=== PATIENT | female | born 1990 | race Caucasian/White ===

== ENCOUNTER 2016-10-23 16:49 | Emergency (ER) | payer OTHER ==
--- NOTE | 2016-10-23 17:59 | ED NURSING NOTES ---
Clinical Report - Nurses [facility] [address] [place] [address] 10/23/2016 16:50 Patient: MERLIN SKINNER TRIAGE Triage time 16:55. Acuity: LEVEL 4. Chief Complaint: (blurry vision). 17:06 10/23/16. Alert. No acute distress. SEPSIS SCREEN: Sepsis Screen. Negative (no infection suspected/documented). LUIS COMA SCORE: [place] Coma Scale: 15- eyes open spontaneously (4); best verbal response- oriented x 4 (5); best motor response- obeys commands (6). --17:06 Rhonda Arroyo R.N. 16:57 10/23/16. BP: 116/74. HR: 84. RR: 15. O2 saturation: 97%. Temp: 98.3 F. Pain level now: 10/12. --17:06 Rhonda Arroyo R.N. Weight: 54.4 kg stated. Height/Length: 64 inches Per Patient. BMI: 20.6. --17:01 Rhonda Arroyo R.N. Medications Suboxone Sublingual. --16:59 Rhonda Arroyo R.N. Allergies No Known Drug Allergy. --16:59 Rhonda Arroyo R.N. History Arrived by private vehicle. Historian: patient. Primary physician (Dr Niño). This started today. She has had a headache and weakness. No vomiting. Treatment CERTIFIED ALCOHOL DRUG COUNSELOR: None. PAST MEDICAL HX: Immunizations: up-to-date. Last normal menstrual period- 1 month ago. Denies current . ( pt states "my period is super irregular"). SOCIAL HX: Never smoker. History of drug use. Is a recovering addict. No alcohol use. FALL RISK ASSESSMENT: Fall risk assessment completed. No fall risk identified. NUTRITIONAL RISK ASSESSMENT: The nutritional risk assessment revealed no deficiencies. FUNCTIONAL ASSESSMENT: Functional assessment: no impairments noted. LEARNING NEEDS ASSESSMENT: The learning needs assessment revealed no barriers. SKIN INTEGRITY ASSESSMENT: Skin integrity risk assessment completed. No skin integrity risk identified. --17:06 Rhonda Arroyo R.N. PROBLEMS: Palpitations. Sinus Tachycardia. LNMP - Last Normal Menstrual Period. --17:00 Rhonda Arroyo R.N. Interventions ID band on patient. To treatment room. --17:06 Rhonda Arroyo R.N. PHYSICAL ASSESSMENT 17:07 10/23/16. Ambulatory to room. GENERAL / NEURO / PSYCH: Oriented X 4. Appears in no acute distress. Alert. Speech within normal limits. HEENT: No facial asymmetry noted. RESPIRATORY: Respirations not labored. CVS: Capillary refill less than 2 seconds. SKIN: Skin is warm and dry. --17:07 Rhonda Arroyo R.N. NURSING PROGRESS NOTES 17:07 10/23/16. Patient gowned. Two patient identifiers checked. Call light placed in reach. Side rails up x 2. Bed placed in lowest position. Brakes of bed on. Patient ready for evaluation- chart flagged and notification provided. --17:07 Rhonda Arroyo R.N. 17:18 10/23/16. VISUAL ACUITY: Visual acuity performed without corrective lenses: left eye 20/25; right eye 20/40; both eyes 20/30. --17:18 Rhonda Arroyo R.N. EKG time: (1744). EKG was ordered, performed by a tech and shown to the ED physician. --17:25 Moraima Birmingham ER Tech1 17:34 10/23/16. Urine test negative; lot #: [id number]. manager control check passed. --17:34 Rhonda Arroyo R.N. 17:46 10/23/2016 Vistaril (HydrOXYzine Pamoate) PO Capsules 100 mg given. Allergies verified, confirmed 5 rights and sedative warning given to the patient. --17:46 Rhonda Arroyo R.N. 17:50 10/23/16. Patient and family informed about reason for wait and about plan of care. ( Patient drinking water in room.). --17:50 Rhonda Arroyo R.N. DISPOSITION / DISCHARGE 18:25 10/23/16. No learning barriers present. Discharge instructions provided and reviewed with the patient and parent. Reviewed warnings. Reviewed medication(s). Treatments reviewed. Reviewed referrals. Patient and parent verbalized understanding. Written instructions provided in Sammarinese. The patient was discharged by the physician apartment community assistant manager. She was discharged home and accompanied by parent. She left the Emergency Department ambulatory and via private vehicle. Parent driving. --18:25 Rhonda Arroyo R.N. 18:24 10/23/16. BP: 116/76. HR: 72. RR: 12. O2 saturation: 100%. Temp: deferred. Pain level now: 0/10. --18:25 Rhonda Arroyo R.N. Locked/Released at 10/23/2016 18:38 by Rhonda Arroyo R.N.
--- NOTE | 2016-10-23 17:59 | ED ORDER SUMMARY ---
..... Patient: MERLIN SKINNER OrderSheet [facility] VisitID: [id number] [place] [address] 25y, F Registration Date/Time: 10/23/2016 ORDER SHEET Weight: 54.4 kg (stated) Allergies: No Known Drug Allergy GENERAL ORDERS: Visual Acuity (17:01 10/23/2016 EKoroleva P.A.-C) (Ack 17:08 RMarsden R.N.) (17:15 RMarsden R.N.) POC - Urine hCG (17:03 10/23/2016 EKoroleva P.A.-C) (Ack 17:08 RMarsden R.N.) (17:34 RMarsden R.N.) Dressage Instructor (Continuous) (17:03 10/23/2016 EKoroleva P.A.-C) (Ack 17:08 RMarsden R.N.) (17:34 RMarsden R.N.) EKG - ER Stat (17:03 10/23/2016 EKoroleva P.A.-C) (Ack 17:06 KHoerner) (17:08 KHoerner) Vitals (17:30 10/23/2016 EKoroleva P.A.-C) (Cancelled: Other17:30 EKoroleva P.A.-C) MEDICATION ORDERS: Vistaril PO 100 mg (NOW) (17:37 10/23/2016 EKoroleva P.A.-C) (Ack 17:41 RMarsden R.N.) (17:46 RMarsden R.N.) IV FLUIDS: ORDER SHEET NOTES: [Electronically signed by Tania FinleyAVirgilio-C (18:32 10/23/2016)] [Electronically signed by Rhonda Arroyo R.N. (18:38 10/23/2016)] [Electronically locked/signed by Rhonda Arroyo R.N. (18:38 10/23/2016)]
--- NOTE | 2016-10-23 17:59 | ED CLINICAL REPORT ---
Clinical Report - Physicians/Mid Levels [facility] [address] [place] [address] 10/23/2016 16:50 [id number] Time Seen: 17:04 Oct 23 2016. Arrived- By private vehicle. HISTORY OF PRESENT ILLNESS Chief Complaint: blurred vision/ change in vision/ dark vision. This started just prior to arrival and is still present. No loss of appetite. (Patient reports she was outside playing with a document of her vision started to become blurry and down, not some palpitations, this has resolved. Her vision is also resolved, has had history of similar symptoms, worsening over the last 6 months. Denies any head injury. Denies headache. Reports her symptoms are improving. Last menstrual period about 4 weeks previously. SHe denies any history of DVT or PE. Denies syncope today. Denies neck pain. Sx now improving.). REVIEW OF SYSTEMS No fever, cough, chills or headache. All systems otherwise negative, except as recorded above. PAST HISTORY Problems: Palpitations. Sinus Tachycardia. LNMP - Last Normal Menstrual Period. Medications: Suboxone Sublingual. Allergies: No Known Drug Allergy. ADDITIONAL NOTES The nursing notes have been reviewed. PHYSICAL EXAM Vital Signs: 10/23/2016 16:57 BP: 116/74. HR: 84. RR: 15. O2 saturation: 97%. Temp: 98.3 F. Pain level now: 3/10. Appearance: Alert. ENT: Ears normal. Nose normal. Neck: Normal inspection. CVS: Normal heart rate and rhythm. Heart sounds normal. Respiratory: No respiratory distress. Breath sounds normal. No accessory muscle use. Abdomen: No visible injury. Soft. Bowel sounds normal. No abdominal tenderness. Neuro: Oriented X 3. LABS, X-RAYS, AND EKG EKG: EKG time: (5540). No acute process. No acute ischemia. Normal EKG. Rate: 78. Normal P waves. Normal VALERIY. Normal QRS complex. Normal axis. Normal ST and T waves and QT. The study has been interpreted contemporaneously. The study has been independently viewed by me. The EKG appears to be a good tracing. PROGRESS AND PROCEDURES Course of Care: VISUAL ACUITY: Visual acuity performed without corrective lenses: left eye 20/25; right eye 20/40; both eyes 20/30 POC preg neg Patient with resolution of symptoms in the ER, expressing panic attack and anxiety, urge to help with her primary care provider, for a plan of such. No shortness of breath chest pain in the ER. Symptoms have resolved. 10/23/2016 18:24 BP: 116/76. HR: 72. RR: 12. O2 saturation: 100%. Pain level now: 0/10. Patient is stable. Symptoms better. CLINICAL IMPRESSION Anxiety reaction. INSTRUCTIONS Avoid alcohol and NSAIDS. Examples of NSAIDS include aspirin, ibuprofen (Advil) and naproxen (Aleve). Warnings: Further evaluation is necessary. Prescription Medications: Vistaril 100 mg: take 1 orally every 8 hours for 3 days as needed for anxiety. Dispense ten (10). No refill. Substitution is permissible. Follow-up: Follow up with your doctor in two days. (Electronically signed by Tania Finley P.A.-C 10/23/2016 18:32)
--- NOTE | 2016-10-23 17:59 | ED NURSING NOTES ---
Clinical Report - Nurses [facility] [address] [place] [place] [address] 10/23/2016 16:50 Patient: MERLIN SKINNER TRIAGE Triage time 16:55. Acuity: LEVEL 4. Chief Complaint: (blurry vision). 17:06 10/23/16. Alert. No acute distress. SEPSIS SCREEN: Sepsis Screen. Negative (no infection suspected/documented). LUIS COMA SCORE: [place] Coma Scale: 15- eyes open spontaneously (4); best verbal response- oriented x 4 (5); best motor response- obeys commands (6). --17:06 Rhonda Arroyo R.N. 16:57 10/23/16. BP: 116/74. HR: 84. RR: 15. O2 saturation: 97%. Temp: 98.3 F. Pain level now: 10/12. --17:06 Rhonda Arroyo R.N. Weight: 54.4 kg stated. Height/Length: 64 inches Per Patient. BMI: 20.6. --17:01 Rhonda Arroyo R.N. Medications Suboxone Sublingual. --16:59 Rhonda Arroyo R.N. Allergies No Known Drug Allergy. --16:59 Rhonda Arroyo R.N. History Arrived by private vehicle. Historian: patient. Primary physician (Dr Niño). This started today. She has had a headache and weakness. No vomiting. Treatment WORKFORCE PLANNER: None. PAST MEDICAL HX: Immunizations: up-to-date. Last normal menstrual period- 1 month ago. Denies current . ( pt states "my period is super irregular"). SOCIAL HX: Never smoker. History of drug use. Is a recovering addict. No alcohol use. FALL RISK ASSESSMENT: Fall risk assessment completed. No fall risk identified. NUTRITIONAL RISK ASSESSMENT: The nutritional risk assessment revealed no deficiencies. FUNCTIONAL ASSESSMENT: Functional assessment: no impairments noted. LEARNING NEEDS ASSESSMENT: The learning needs assessment revealed no barriers. SKIN INTEGRITY ASSESSMENT: Skin integrity risk assessment completed. No skin integrity risk identified. --17:06 Rhonda Arroyo R.N. PROBLEMS: Palpitations. Sinus Tachycardia. LNMP - Last Normal Menstrual Period. --17:00 Rhonda Arroyo R.N. Interventions ID band on patient. To treatment room. --17:06 Rhonda Arroyo R.N. PHYSICAL ASSESSMENT 17:07 10/23/16. Ambulatory to room. GENERAL / NEURO / PSYCH: Oriented X 4. Appears in no acute distress. Alert. Speech within normal limits. HEENT: No facial asymmetry noted. RESPIRATORY: Respirations not labored. CVS: Capillary refill less than 2 seconds. SKIN: Skin is warm and dry. --17:07 Rhonda Arroyo R.N. NURSING PROGRESS NOTES 17:07 10/23/16. Patient gowned. Two patient identifiers checked. Call light placed in reach. Side rails up x 2. Bed placed in lowest position. Brakes of bed on. Patient ready for evaluation- chart flagged and notification provided. --17:07 Rhonda Arroyo R.N. 17:18 10/23/16. VISUAL ACUITY: Visual acuity performed without corrective lenses: left eye 20/25; right eye 20/40; both eyes 20/30. --17:18 Rhonda Arroyo R.N. EKG time: (1744). EKG was ordered, performed by a tech and shown to the ED physician. --17:25 Moraima Birmingham ER Tech1 17:34 10/23/16. Urine test negative; lot #: [id number]. quality control specialist check passed. --17:34 Rhonda Arroyo R.N. 17:46 10/23/2016 Vistaril (HydrOXYzine Pamoate) PO Capsules 100 mg given. Allergies verified, confirmed 5 rights and sedative warning given to the patient. --17:46 Rhonda Arroyo R.N. 17:50 10/23/16. Patient and family informed about reason for wait and about plan of care. ( Patient drinking water in room.). --17:50 Rhonda Arroyo R.N. DISPOSITION / DISCHARGE 18:25 10/23/16. No learning barriers present. Discharge instructions provided and reviewed with the patient and parent. Reviewed warnings. Reviewed medication(s). Treatments reviewed. Reviewed referrals. Patient and parent verbalized understanding. Written instructions provided in Pakistani. The patient was discharged by the physician sales assistants and salespersons. She was discharged home and accompanied by parent. She left the Emergency Department ambulatory and via private vehicle. Parent driving. --18:25 Rhonda Arroyo R.N. 18:24 10/23/16. BP: 116/76. HR: 72. RR: 12. O2 saturation: 100%. Temp: deferred. Pain level now: 0/10. --18:25 Rhonda Arroyo R.N. Locked/Released at 10/23/2016 18:38 by Rhonda Arroyo R.N.
--- NOTE | 2016-10-23 17:59 | ED ORDER SUMMARY ---
..... Patient: MERLIN SKINNER OrderSheet [facility] VisitID: [id number] [place] [address] 25y, F Registration Date/Time: 10/23/2016 ORDER SHEET Weight: 54.4 kg (stated) Allergies: No Known Drug Allergy GENERAL ORDERS: Visual Acuity (17:01 10/23/2016 EKoroleva P.A.-C) (Ack 17:08 RMarsden R.N.) (17:15 RMarsden R.N.) POC - Urine hCG (17:03 10/23/2016 EKoroleva P.A.-C) (Ack 17:08 RMarsden R.N.) (17:34 RMarsden R.N.) Shake Packer (Continuous) (17:03 10/23/2016 EKoroleva P.A.-C) (Ack 17:08 RMarsden R.N.) (17:34 RMarsden R.N.) EKG - ER Stat (17:03 10/23/2016 EKoroleva P.A.-C) (Ack 17:06 KHoerner) (17:08 KHoerner) Vitals (17:30 10/23/2016 EKoroleva P.A.-C) (Cancelled: Other17:30 EKoroleva P.A.-C) MEDICATION ORDERS: Vistaril PO 100 mg (NOW) (17:37 10/23/2016 EKoroleva P.A.-C) (Ack 17:41 RMarsden R.N.) (17:46 RMarsden R.N.) IV FLUIDS: ORDER SHEET NOTES: [Electronically signed by Tania FinleyAVirgilio-C (18:32 10/23/2016)] [Electronically signed by Rhonda Arroyo R.N. (18:38 10/23/2016)] [Electronically locked/signed by Rhonda Arroyo R.N. (18:38 10/23/2016)]
--- NOTE | 2016-10-23 17:59 | ED CLINICAL REPORT ---
Clinical Report - Physicians/Mid Levels [facility] [address] [place] [address] 10/23/2016 16:50 [id number] Time Seen: 17:04 Oct 23 2016. Arrived- By private vehicle. HISTORY OF PRESENT ILLNESS Chief Complaint: blurred vision/ change in vision/ dark vision. This started just prior to arrival and is still present. No loss of appetite. (Patient reports she was outside playing with a document of her vision started to become blurry and down, not some palpitations, this has resolved. Her vision is also resolved, has had history of similar symptoms, worsening over the last 6 months. Denies any head injury. Denies headache. Reports her symptoms are improving. Last menstrual period about 4 weeks previously. SHe denies any history of DVT or PE. Denies syncope today. Denies neck pain. Sx now improving.). REVIEW OF SYSTEMS No fever, cough, chills or headache. All systems otherwise negative, except as recorded above. PAST HISTORY Problems: Palpitations. Sinus Tachycardia. LNMP - Last Normal Menstrual Period. Medications: Suboxone Sublingual. Allergies: No Known Drug Allergy. ADDITIONAL NOTES The nursing notes have been reviewed. PHYSICAL EXAM Vital Signs: 10/23/2016 16:57 BP: 116/74. HR: 84. RR: 15. O2 saturation: 97%. Temp: 98.3 F. Pain level now: 3/10. Appearance: Alert. ENT: Ears normal. Nose normal. Neck: Normal inspection. CVS: Normal heart rate and rhythm. Heart sounds normal. Respiratory: No respiratory distress. Breath sounds normal. No accessory muscle use. Abdomen: No visible injury. Soft. Bowel sounds normal. No abdominal tenderness. Neuro: Oriented X 3. LABS, X-RAYS, AND EKG EKG: EKG time: (4341). No acute process. No acute ischemia. Normal EKG. Rate: 78. Normal P waves. Normal VALERIY. Normal QRS complex. Normal axis. Normal ST and T waves and QT. The study has been interpreted contemporaneously. The study has been independently viewed by me. The EKG appears to be a good tracing. PROGRESS AND PROCEDURES Course of Care: VISUAL ACUITY: Visual acuity performed without corrective lenses: left eye 20/25; right eye 20/40; both eyes 20/30 POC preg neg Patient with resolution of symptoms in the ER, expressing panic attack and anxiety, urge to help with her primary care provider, for a plan of such. No shortness of breath chest pain in the ER. Symptoms have resolved. 10/23/2016 18:24 BP: 116/76. HR: 72. RR: 12. O2 saturation: 100%. Pain level now: 0/10. Patient is stable. Symptoms better. CLINICAL IMPRESSION Anxiety reaction. INSTRUCTIONS Avoid alcohol and NSAIDS. Examples of NSAIDS include aspirin, ibuprofen (Advil) and naproxen (Aleve). Warnings: Further evaluation is necessary. Prescription Medications: Vistaril 100 mg: take 1 orally every 8 hours for 3 days as needed for anxiety. Dispense ten (10). No refill. Substitution is permissible. Follow-up: Follow up with your doctor in two days. (Electronically signed by Tania Finley P.A.-C 10/23/2016 18:32)
--- NOTE | 2016-10-23 18:39 | ED MED RECONCILIATION SUMMARY ---
Patient: MERLIN SKINNER Medication Reconciliation Report [facility] VisitID: [id number] [address] [place] [address] 25y, F Registration Date/Time: 10/23/2016 Weight: 54.4 kg Height/Length: 64 in. BMI: 20.6 ALLERGIES: No Known Drug Allergy The patient's Home Medications are listed below: THE FOLLOWING MEDICATIONS NEED TO BE RECONCILED: Suboxone Sublingual The source(s) of the original Home Medication information: Not obtained. The following Medications were given to the patient in the Emergency Department: Vistaril [PO] PO 100 mg, administered: 10/23/2016 5:46:00 PM The following Medications were prescribed to the patient: Vistaril 100 mg: take 1 orally every 8 hours for 3 days as needed for anxiety. Dispense ten (10). No refill. Substitution is permissible. -- Tania Finley, JewelC
--- NOTE | 2016-10-23 18:39 | ED MED RECONCILIATION SUMMARY ---
Patient: MERLIN SKINNER Medication Reconciliation Report [facility] VisitID: [id number] [address] [place] [address] 25y, F Registration Date/Time: 10/23/2016 Weight: 54.4 kg Height/Length: 64 in. BMI: 20.6 ALLERGIES: No Known Drug Allergy The patient's Home Medications are listed below: THE FOLLOWING MEDICATIONS NEED TO BE RECONCILED: Suboxone Sublingual The source(s) of the original Home Medication information: Not obtained. The following Medications were given to the patient in the Emergency Department: Vistaril [PO] PO 100 mg, administered: 10/23/2016 5:46:00 PM The following Medications were prescribed to the patient: Vistaril 100 mg: take 1 orally every 8 hours for 3 days as needed for anxiety. Dispense ten (10). No refill. Substitution is permissible. -- Tania Finley, JewelC
--- NOTE | 2016-10-23 18:39 | ED DISCHARGE INSTRUCTIONS ---
Patient: MERLIN SKINNER General Instructions Located Within [facility] VisitID: [id number] [place] [address] 25y, F Registration Date/Time: 10/23/2016 Anxiety reaction. INSTRUCTIONS Avoid alcohol and NSAIDS. Examples of NSAIDS include aspirin, ibuprofen (Advil) and naproxen (Aleve). Warnings: Further evaluation is necessary. Prescription Medications: Vistaril 100 mg: take 1 orally every 8 hours for 3 days as needed for anxiety. Dispense ten (10). No refill. Substitution is permissible. Follow-up: Follow up with your doctor in two days. ADDITIONAL INFORMATION Stress Reaction Anxiety is the feeling we all get when we think something bad might happen. It is a normal response to stress and usually causes only a mild reaction. When anxiety becomes more severe, emotions may interfere with daily life. In some cases, you may not even be aware of what it is youre anxious about! During an anxiety reaction, you may feel like you are helpless, nervous, depressed or irritable. Your body may show signs of anxiety in many ways. You may experience dry mouth, shakiness, dizziness, weakness, trouble breathing, chest pressure, headache, nausea, diarrhea, tiredness, inability to sleep or sexual problems. Home Care: 1) Try to locate the sources of stress in your life. They may not be obvious! These may include: -- Daily hassles of life which pile up (traffic jams, missed appointments, car troubles, etc.) -- Major life changes, both good (new baby, job promotion) and bad (loss of job, loss of loved one) -- Overload: feeling that you have too many responsibilities and can't take care of all of them at once -- Feeling helpless, feeling that your problems are beyond what youre able to solve 2) Notice how your body reacts to stress. Learn to listen to your body signals. This will help you take action before the stress becomes severe. 3) When you can, do something about the source of your stress. (Avoid hassles, limit the amount of change that happens in your life at one time and take a break when you feel overloaded). 4) Unfortunately, many stressful situations cannot be avoided. It is necessary to learn HOW TO MANAGE STRESS better. There are many proven methods that will reduce your anxiety. These include simple things like exercise, good nutrition and adequate rest. Also, there are certain techniques that are helpful: relaxation and breathing exercises, visualization, biofeedback and meditation. For more information about this, consult your doctor or go to a local bookstore and review the many books and tapes available on this subject. Follow Up If you feel that your anxiety is not responding to self-help measures, contact your doctor or make an appointment with a counselor. Get Prompt Medical Attention if any of the following occur: -- Your symptoms get worse -- Chest pain or trouble breathing -- Severe headache not relieved by rest and mild pain reliever -- Rapid or irregular heartbeat, fainting Panic Attack A panic attack is an extreme fear reaction that comes on for no apparent reason. Symptoms may include pounding or racing heartbeat, shortness of breath, dizziness, weakness and sweating. There is usually a fear that something terrible will happen or that you may . The attack may last a few minutes up to a few hours. Between attacks things will seem quite normal. This condition has a psychological cause and can be treated with the help of a therapist or psychiatrist. Medication is often used and can be very helpful for this problem. Home Care: Try to identify the sources of stress in your life. It may not be obvious! These may include: Daily hassles of life which pile up (traffic jams, missed appointments, car troubles, etc.). Major life changes, both good (new baby, job promotion) and bad (loss of job, loss of loved one). Overload: feeling that you have too many responsibilities and can't take care of everything at once. Helplessness: feeling like your problems are too much for you to handle. Notice how your body reacts to stress. Learn to listen to your body signals so that you can take action before the stress becomes severe. When possible, AVOID or REDUCE THE CAUSE OF STRESS. Avoid hassles, limit the amount of change that is happening in your life at one time or take a break when you feel overloaded. Unfortunately, many stressful situations cannot be avoided. Therefore, it is necessary to LEARN HOW TO MANAGE STRESS better. There are many proven methods that work and will reduce your anxiety. These include simple things like exercise, good nutrition and adequate rest. Also, there are certain techniques that are helpful: relaxation and breathing exercises, visualization, biofeedback, meditation or simply taking some time-out to clear your mind. For more information about this, consult your doctor or go to a local bookstore and review the many books and tapes available on this subject. Follow Up with your doctor or a therapist as advised. Get Prompt Medical Attention if any of the following occur: Worsening of your symptoms to the point of feeling [id number] A change in the type of pain: if it feels different, becomes more severe, lasts longer, or begins to spread into your shoulder, arm, neck, jaw or back Shortness of breath or increased pain with breathing Increasing feeling of weakness or dizziness Fainting Cough with dark colored sputum (phlegm) or blood Fever of 100.4F (38C) or higher, or as directed by your healthcare provider Swelling, pain or redness in one leg You have been given the following additional information: Anxiety Reaction Panic Attack (Electronically signed by Tania Finley P.A.-C 10/23/2016 18:32)
--- NOTE | 2016-10-23 18:39 | ED MAR SUMMARY ---
..... Medication Administration Record [facility] [address] [place] [address] Patient: MERLIN SKINNER Visit ID: [id number] 25y, F Weight: 54.4 kg Height/Length: 64 in BMI: 20.6 ALLERGIES: No Known Drug Allergy Given 17:46 10/23/2016 Rhonda Arroyo R.N. Medication Administered: VISTARIL [PO] (HYDROXYZINE PAMOATE), Dose: 100 mg Capsules PO. Medication Ordered: Vistaril PO 100 mg (NOW).
--- NOTE | 2016-10-23 18:39 | ED MAR SUMMARY ---
..... Medication Administration Record [facility] [address] [place] [address] Patient: MERLIN SKINNER Visit ID: [id number] 25y, F Weight: 54.4 kg Height/Length: 64 in BMI: 20.6 ALLERGIES: No Known Drug Allergy Given 17:46 10/23/2016 Rhonda Arroyo R.N. Medication Administered: VISTARIL [PO] (HYDROXYZINE PAMOATE), Dose: 100 mg Capsules PO. Medication Ordered: Vistaril PO 100 mg (NOW).
== END 2016-10-23 18:25 | disposition home or self-care (01) ==
LOC: ED SRH 16:49
DX: F41.1 Generalized anxiety disorder (principal)